=== PATIENT | male | born 1955 | race Caucasian/White ===

== ENCOUNTER → 2019-07-28 | Outpatient (CLI) | payer MEDICARE ==
[2019-07-28 10:07] LABS: Appearance,Urine Clear (Clear); Bilirubin,Urine Negative (Negative); Blood,Urine Negative (Negative); Color,Urine Yellow; Glucose,Urine (UA) Negative (Negative); Ketones,Urine Negative (Negative); Leukocyte Esterase,Urine Negative (Negative); Nitrite,Urine Negative (Negative); Protein,Urine Negative (Negative); Specific Gravity,Urine 1.008 (1.001-1.035); Urobilinogen,Urine <2.0 mg/dL (<2.0)
[2019-07-28 10:17] LABS: INR 0.9 (<1.2); Partial Thromboplastin Time 23.5 sec (22.0-30.0); Prothrombin Time 9.8 sec (9.0-12.0)
[2019-07-28 10:35] LABS: ALT 20 U/L (4-49); AST 22 U/L (17-59); African American GFR (CKD) >90 (>60 ml/min/1.73 sqM); Albumin 4.2 g/dL (3.5-5.0); Alkaline Phosphatase 78 U/L (38-126); Anion Gap 9 mmol/L; Blood Urea Nitrogen 17 mg/dL (9-20); Calcium 9.9 mg/dL (8.4-10.2); Carbon Dioxide 24 mmol/L (22-30); Chloride 105 mmol/L (98-107); Glucose 206 mg/dL (74-99); Non-African American GFR(CKD) >90 (>60 ml/min/1.73 sqM); Potassium 4.7 mmol/L (3.5-5.1); Sodium 138 mmol/L (137-145); Total Bilirubin 0.6 mg/dL (0.2-1.3); Total Protein 7.4 g/dL (6.3-8.2)
== END | disposition home or self-care (01) ==
LOC: LABPAT 08:49
PROVIDERS: ATTEND Orthopaedic Surgery
DX: Z01.818 Encounter for other preprocedural examination (principal); Z01.812 Encounter for preprocedural laboratory examination; Z51.81 Encounter for therapeutic drug level monitoring; Z79.01 Long term (current) use of anticoagulants
CPT/HCPCS: 80053; 81003; 85610; 85730; 86850; 86900; 86901; 87070; 93005

== ENCOUNTER → 2019-07-28 | Outpatient (CLI) | payer MEDICARE ==
[2019-07-28 10:04] LABS: Basophils % (A) 1 %; Eosinophils # (A) 0.1 k/uL (0-0.7); Eosinophils % (A) 2 %; HCT 44.3 % (39.0-53.0); HGB 14.4 gm/dL (13.0-17.5); Lymphocytes # (A) 2.2 k/uL (1.0-4.8); Lymphocytes % (A) 34 %; MCH 30.4 pg (25.0-35.0); MCHC 32.5 g/dL (31.0-37.0); MCV 93.4 fL (80.0-100.0); Mean Platelet Volume 7.5; Monocytes # (A) 0.4 k/uL (0-1.0); Monocytes % (A) 7 %; Neutrophils # (A) 3.5 k/uL (1.3-7.7); Neutrophils % (A) 55 %; Platelet Count 261 k/uL (150-450); RBC 4.74 m/uL (4.30-5.90); WBC 6.5 k/uL (3.8-10.6)
== END | disposition home or self-care (01) ==
LOC: LABWHC1 08:56
PROVIDERS: ATTEND Physician Assistant
DX: E11.59 Type 2 diabetes mellitus with other circulatory complications (principal); I10 Essential (primary) hypertension
CPT/HCPCS: 36415; 85025

== ENCOUNTER 2019-08-03 08:44 | Day surgery (SDC) | payer MEDICARE ==
[2019-07-29 17:42] VITALS: BMI 29.4
[~2019-08-03 08:44] MED LIST: ACETAMINOPHEN TAB 500 MG TAB PO ONE; DEXAMETHASONE SOD PHOSPHATE 10 MG/ML 1 ML VIAL IV ONE; HYDROmorphone 0.5 MG/0.5 ML SYRINGE IVP PRN; LIDOCAINE 1% 20 ML VIAL (10MG/ML) FOR IV START INTRADERMA PRN; MELOXICAM 7.5 MG TAB PO ONE; ONDANSETRON 4 MG/2 ML VIAL IVP ONE; TRANEXAMIC ACID 1,000 MG in SODIUM CHLORIDE 0.9% 100 ML IVPB ONE; fentaNYL (PF) 50 MCG/ML 2 ML AMP IV PRN
[2019-08-03 09:24] LABS: Glucose,Whole Blood 150 mg/dL (75-99)
[2019-08-03] MEDS: LACTATED RINGERS 1,000 ML IV SCH ×3 (09:24→20:47)
[2019-08-03] MEDS ORDERED: PROPOFOL 10 MG/ML 20 ML VIAL IV ONE (09:58)
[2019-08-03] MEDS ORDERED: KETAMINE 10 MG/ML 20 ML VIAL ONE (09:58)
[2019-08-03] MEDS ORDERED: ePHEDrine SULFATE/0.9% NACL/PF 50 MG/5 ML SYRINGE IV ONE (09:58)
[2019-08-03] MEDS ORDERED: MIDAZOLAM 2 MG/2 ML VIAL ONE (09:58)
[2019-08-03] MEDS ORDERED: fentaNYL (PF) 50 MCG/ML 2 ML AMP ONE (09:58)
[2019-08-03] MEDS ORDERED: TRANEXAMIC ACID 1,000 MG/10 ML VIAL ONE (09:58)
[2019-08-03] MEDS ORDERED: SODIUM CHLORIDE 0.9% 100 ML BAG ONE (09:58)
[2019-08-03] MEDS ORDERED: ceFAZolin 3,000 MG in SODIUM CHLORIDE 0.9% IRRIGATIO 3,000 ML IRRIGATION ONE (10:02)
[2019-08-03] MEDS ORDERED: ROPIVACAINE 246.25 MG, EPINEPHrine 0.5 MG, KETOROLAC 30 MG, cloNIDine HCL/PF 80 MCG, WA... MISCELLANE ONE ×5 (10:04)
[2019-08-03] MEDS ORDERED: NALOXONE 0.4 MG/ML 1 ML VIAL IV PRN (10:43)
[2019-08-03] MEDS ORDERED: HYDROcodone/APAP 7.5-325MG 1 EACH TAB PO PRN (10:43)
[2019-08-03] MEDS ORDERED: TEMAZEPAM 15 MG CAP PO PRN (10:43)
[2019-08-03] MEDS ORDERED: HYDROmorphone 0.5 MG/0.5 ML SYRINGE IVP PRN ×2 (10:43)
[2019-08-03] MEDS ORDERED: MAGNESIUM HYDROXIDE 2,400 MG/10 ML CUP PO PRN (10:43)
[2019-08-03] MEDS ORDERED: LACTATED RINGERS 1,000 ML IV ONE (10:45)
--- NOTE | 2019-08-03 11:34 | P.OP ---
Date of Procedure: 08/03/19 Procedure(s) Performed: PREOPERATIVE DIAGNOSIS: Right hip severe osteoarthritis POSTOPERATIVE DIAGNOSIS: Right hip severe osteoarthritis OPERATION: Right hip total replacement arthroplasty (uncemented implantation with ceramic on polyethylene articulation). ANESTHESIA: Spinal ESTIMATED BLOOD LOSS: 150 ml. CASTING SORTER: Mariangel Ken PA-C (assistance with: patient positioning, retraction, exposure, hemostasis, leg positioning, implantation, irrigation, closure, dressing) COMPLICATIONS: None apparent. COMPONENTS IMPLANTED: Mary Jo continuum acetabular cup with cluster holes; continuum longevity 15 elevated liner, 32 mm id; Mary Jo VerSys Fiber Metal stem; VerSys 32 mm femoral head with +0 mm neck length extension INDICATIONS: Mr. Colvin is a 63 year old male with significant end-stage osteoarthritis involving the right hip and commensurate severe symptoms. He presents to the operating room today for total hip replacement. I have discussed the steps of the operation as well as potential risks and complications as being inclusive of, but not limited to: Leading, infection, scarring, discomfort, or vessel and/or nerve damage, need for further surgery, loosening, dislocation, wear, osteolysis, limb length inequality, fracture, blood clot, pulmonary embolism, , persistent limp, and other risks. The patient is aware these risks and wishes to proceed with surgery and has signed a consent form. PROCEDURE: After appropriate consent was obtained, the patient was taken to the operating room and placed in supine position. Spinal anesthetic was administered and after confirmation of adequate anesthesia, the patient was placed into the lateral decubitus position with the right side up. Care was taken to make sure that all pressure points were adequately padded and he was stabilized to the table with a [place] hip positioner. The right hip was prepped and draped in the usual aseptic fashion using a combination of ChloraPrep and alcohol. Ioban drape was used for the case and the patient received intravenous antibiotics prior to the incision. "Time out" was called, confirming patient identity, side, procedure, availability of implants and administration of antibiotics. The incision was created directly over the greater trochanter and carried slightly posteriorly for a posterior approach to the hip. The incision was then deepened down to subcutaneous tissue and fascia patti. Fascia patti was split in line with the incision and split proximally along the fibers of the gluteus angelika. The underlying fibers of the muscle were teased apart using finger dissection and bleeding vessels were picked up and coagulated. Retractor was then placed posteriorly consisting of a blunt Mina. The short external rotators and capsule were exposed using good visualization of the attachment of the external rotators to the femur was established. The short external rotators and capsule were released using electrocautery from their femoral attachments. A hockey stick shaped incision was created in the capsule. Joint fluid was evacuated and the patient's hip was able to be dislocated fairly easily. The patient's femoral head was severely arthritic with eburnated bone present and a 360 degrees lyons of osteophytes. The femoral neck cut was created approximately 1 cm superior to the lesser trochanter using a reciprocating saw. The femoral head and neck fragment was removed and attention was then directed to the acetabulum. An anterior acetabular retractor was applied followed by posterior retraction of the capsule with a Meyerding retractor. This afforded good visualization into the acetabular cavity. Soft tissue was removed and residual cartilage within the acetabular vault was removed using a curette. Labrum was removed using a long-handled knife. Attention was then directed to reaming. The size 44 reamer was used first, followed by increasing increments until the final size reamer was used. Please see the implantation sheet for exact sizes used for the components. Once the final reamer had been utilized to expand the socket it was noted that there was a good supportive bone around the acetabular socket and no further reaming needed to be performed. The trial the same size as the last reamer used was then impacted into the acetabular vault and found to have good fit. The acetabular component, one size (2mm) greater than the trial was then called for. The cluster holes were placed posteriorly and the component was impacted in a position of approximately 40 degrees abduction and 20 degrees anteversion. This matched this patient's picayune anteversion and it was noted that the cup had excellent stability without need for additional screw fixation. Attention was then directed to the acetabular liner. The anteversion and abduction angle of the component was noted to be very good. A 15 elevated liner was used and locked into position with the elevation posterior superior. Osteophytes around the posterior and inferior aspect of the acetabulum were trimmed as necessary to prevent any impingement. Attention was then directed back to the proximal femur. Retractors were placed around the proximal femur and box osteotome was used followed by canal finder and trochanteric reamer. Cylindrical reaming was performed. Progressive broaching was then performed starting with a #10 broach and progressing final size, in a position of 15 degrees anteversion. [place] anteversion was within 5 degrees of stem position. The final size broach had excellent fit and fill of the patient's metaphysis and diaphysis. Trial reduction was then performed starting with size 32 mm femoral head and various neck combination of stability, limb length equality, and soft tissue tension. Trial components were then removed. The canal was lavaged and the final size femoral stem component was impacted into position. The implant fit very well and had excellent stability. The femoral head was then impacted onto the [place] taper. Blood and debris were removed from the acetabular component and the hip was then reduced and checked for stability, limb length and soft tissue tension. These parameters found to be satisfactory, the wound was then thoroughly irrigated with normal saline. Final hemostasis was obtained using electrocautery and IV tranexamic acid, 1 g given at the time of prepping and draping, and another 1 g given at the time of closure. Local anesthetic solution consisting of ropivacaine with epinephrine, clonidine, and ketorolac was also used throughout the case targeting the capsule, fascia, and skin. Closure of the capsule was performed meticulously using #3 Vicryl suture. Four [id number] sutures were placed in the posterior capsule along with repair of the external rotators. The fascia patti was then repaired using combination of #3 Vicryl suture in interrupted fashion and Quill and running fashion. 2-0 Vicryl suture was used for the subcutaneous tissues and 3-0 Quill for the skin. Dermabond or Steri-Strips were then applied. The patient tolerated the procedure well. There were no complications and the wound bed was dry and there was no need for drain placement. Sterile dressing was then applied and the patient was carefully removed from the operating room table, placed on the stretcher and was taken to the recovery room in stable condition. Sponge and needle counts were correct.
[2019-08-03 12:36] LABS: Glucose,Whole Blood 173 mg/dL (75-99)
--- NOTE | 2019-08-03 12:51 | XR ---
EXAMINATION TYPE: XR Hip Limited RT DATE OF EXAM: 08/03/2019 CLINICAL HISTORY: Right hip pain and osteoarthritis. TECHNIQUE: Single AP portable view of right hip is obtained immediately postoperatively. COMPARISON: None. FINDINGS: Metallic hardware from right hip arthroplasty is seen and appears satisfactory in alignment and position. There is evidence of recent surgery with subcutaneous gas noted superior lateral aspe ct. Right groin vascular calcifications seen. Surgical clips right scrotal region partially imaged. IMPRESSION: Metallic hardware from right hip arthroplasty is satisfactory in position.
--- NOTE | 2019-08-03 14:42 | P.CONS ---
History of Present Illness - Reason for Consult Management of diabetes mellitus - History of Present Illness Patient is pleasant 58-year-old male was in his admitted for elective right hip arthrodesis excessively underwent surgery patient doesn't have any drainage patient any fever chills nausea vomiting abdominal pain. Patient will have hypoglycemic agents and lisinopril at home. She did not pass gas did not move his bowels yet minimal pain post surgery Review of Systems REVIEW OF SYSTEMS: CONSTITUTIONAL: No fever, no malaise, no fatigue. HEENT: No recent visual problems or hearing problems. Denied any sore throat. CARDIOVASCULAR: No chest pain, orthopnea, PND, no palpitations, no syncope. PULMONARY: No shortness of breath, no cough, no hemoptysis. GASTROINTESTINAL: No diarrhea, no nausea, no vomiting, no abdominal pain. NEUROLOGICAL: No headaches, no weakness, no numbness. HEMATOLOGICAL: Denies any bleeding or petechiae. GENITOURINARY: Denies any burning micturition, frequency, or urgency. MUSCULOSKELETAL/RHEUMATOLOGICAL: Denies any joint pain, swelling, or any muscle pain. ENDOCRINE: Denies any polyuria or polydipsia. The rest of the 14-point review of systems is negative. Past Medical History Past Medical History: Diabetes Mellitus, Hypertension, Osteoarthritis (OA) Additional Past Medical History / Comment(s): lost 100 lbs. w/lap band-still has fluid in History of Any Multi-Drug Resistant Organisms: None Reported Past Surgical History: Bariatric Surgery, Heart Catheterization With Stent, Joint Replacement, Orthopedic Surgery Additional Past Surgical History / Comment(s): lap band, left hip replaced, repair left heel fx. w/plate, CTS deondre. Past Anesthesia/Blood Transfusion Reactions: Previous Problems w/ Anesthesia, Postoperative Nausea & Vomiting (PONV) Additional Past Anesthesia/Blood Transfusion Reaction / Comm: difficulty coming out of anesthesia w/last hip replacement Date of Last Stent Placement:: 2011 Smoking Status: Former smoker - Past Family History Mother Family Medical History: No Reported History Medications and Allergies Home Medications Medication Instructions Recorded Confirmed Type Lisinopril [Zestril] 20 mg PO DAILY 07/29/19 08/03/19 History sitaGLIPtin PHOS/metFORMIN HCL 1 each PO DAILY 07/29/19 08/03/19 History [Janumet Xr 100-1,000 mg Tablet] Aspirin 325 mg PO BID #1 tab 08/03/19 Rx HYDROcodone/APAP 7.5-325MG [[place] 1 - 2 tab PO Q4-6H PRN #50 tab 08/03/19 Rx 7.5-325] Sennosides-Docusate Sodium 1 tab PO BID #60 tablet 08/03/19 Rx [Senokot-S] Allergies Allergy/AdvReac Type Severity Reaction Status Date / Time No Known Allergies Allergy Verified 08/03/19 09:02 Physical Exam Vitals: Vital Signs Temp Pulse Pulse Resp BP BP Pulse Ox 08/03/19 14:00 56 L 16 97/60 92 L 08/03/19 13:45 74 18 93/53 95 08/03/19 13:15 56 L 16 103/57 91 L 08/03/19 13:00 63 16 107/58 92 L 08/03/19 12:45 55 L 16 107/63 92 L 08/03/19 12:31 56 L 16 107/63 91 L 08/03/19 12:15 60 16 105/59 91 L 08/03/19 12:01 97.1 F L 68 14 116/65 93 L 08/03/19 09:08 97.2 F L 68 15 110/59 97 Intake and Output 08/02/19 08/03/19 08/03/19 22:59 06:59 14:59 Intake Total 1401 Output Total 150 Balance 1251 Intake: IV 1401 Output: Estimated Blood Loss 150 Other: Weight 92.2 kg PHYSICAL EXAMINATION: GENERAL: The patient is alert and oriented x3, not in any acute distress. Well developed, well nourished. HEENT: Pupils are round and equally reacting to light. EOMI. No scleral icterus. No conjunctival pallor. Normocephalic, atraumatic. No pharyngeal erythema. No thyromegaly. CARDIOVASCULAR: S1 and S2 present. No murmurs, rubs, or gallops. PULMONARY: Chest is clear to auscultation, no wheezing or crackles. ABDOMEN: Soft, nontender, nondistended, normoactive bowel sounds. No palpable organomegaly. MUSCULOSKELETAL: Deferred to orthopedic surgery EXTREMITIES: No cyanosis, clubbing, or pedal edema. NEUROLOGICAL: Gross neurological examination did not reveal any focal deficits. SKIN: No rashes. Results Labs: Abnormal Lab Results - Last 24 Hours (Table) 08/03/19 08/03/19 Range/Units 09:23 12:35 POC Glucose (mg/dL) 150 H 173 H (75-99) mg/dL Assessment and Plan Plan: -Hypertension: Patient is expected to have hypotension in the perioperative better to hold off lisinopril temporarily. -Type 2 diabetes mellitus: Patient will be continued on sliding scale insulin and diabetic diet hold off on oral hypoglycemic agents. -Right hip arthroplasty pain management and DVT prophylaxis as per primary service
[2019-08-03 16:43] LABS: Glucose,Whole Blood 299 mg/dL (75-99)
[2019-08-03] MEDS: HYDROcodone/APAP 7.5-325MG 1 EACH TAB PO PRN (17:32)
[2019-08-03] MEDS: INSULIN ASPART (NovoLOG) 100 UNIT/ML VIAL SQ SCH ×2 (17:43→20:48)
[2019-08-03 20:33] LABS: Glucose,Whole Blood 299 mg/dL (75-99)
[2019-08-03] MEDS: ASPIRIN 325 MG TAB PO SCH (20:47)
[2019-08-03] MEDS ORDERED: SENNOSIDES-DOCUSATE SODIUM 1 EACH TAB PO SCH (21:00)
[2019-08-04] MEDS: HYDROmorphone 0.5 MG/0.5 ML SYRINGE IVP PRN ×2 (01:41→11:26)
[2019-08-04] MEDS: LACTATED RINGERS 1,000 ML IV SCH (05:51)
[2019-08-04 07:15] LABS: Glucose,Whole Blood 118 mg/dL (75-99)
[2019-08-04 07:37] LABS: Basophils % (A) 0 %; Eosinophils % (A) 0 %; HCT 38.2 % (39.0-53.0); HGB 12.4 gm/dL (13.0-17.5); Lymphocytes # (A) 2.2 k/uL (1.0-4.8); Lymphocytes % (A) 19 %; MCH 30.1 pg (25.0-35.0); MCHC 32.5 g/dL (31.0-37.0); MCV 92.7 fL (80.0-100.0); Mean Platelet Volume 8.1; Monocytes # (A) 0.8 k/uL (0-1.0); Monocytes % (A) 7 %; Neutrophils # (A) 8.6 k/uL (1.3-7.7); Neutrophils % (A) 73 %; Platelet Count 221 k/uL (150-450); RBC 4.12 m/uL (4.30-5.90); RDW 12.7 % (11.5-15.5); WBC 11.8 k/uL (3.8-10.6)
[2019-08-04 08:20] VITALS: BP 106/66; PULSE 69; RESP 18; TEMP 98
[2019-08-04] MEDS: HYDROcodone/APAP 7.5-325MG 1 EACH TAB PO PRN (08:52)
[2019-08-04] MEDS: ASPIRIN 325 MG TAB PO SCH (08:52)
[2019-08-04] MEDS: INSULIN ASPART (NovoLOG) 100 UNIT/ML VIAL SQ SCH (08:54)
[2019-08-04] MEDS ORDERED: MELOXICAM 7.5 MG TAB PO SCH (09:00)
[2019-08-04 11:56] LABS: Glucose,Whole Blood 179 mg/dL (75-99)
--- NOTE | 2019-08-04 13:56 | P.CONS ---
History of Present Illness - Reason for Consult Consult date: 08/04/19 right hip OA Requesting physician: Sylvain Luu - Chief Complaint right hip replacement - POD1 - History of Present Illness The patient is a 63-year-old male with a history of significant osteoarthritis. The patient has previously had a left total hip replacement followed by adjuvant radiotherapy for heterotopic ossification approximately 5 years ago. The patient reports that he was developing increased difficulty with pain and ambulation owing to right hip osteoarthritis. He subsequently agreed to and underwent a right total hip replacement on August 03. He is postop day 1, and notes that his pain is well controlled at this time. He reports only 4 out of 10 pain. The patient has done very well with his operative course, and is hopeful to go home today. Review of Systems Constitutional: Denies chills, Denies fever Eyes: denies blurred vision Ears: deny: decreased hearing Ears, nose, mouth and throat: Denies headache Cardiovascular: Denies chest pain Respiratory: Denies cough Musculoskeletal: right: hand pain (post-op) Neurological: Denies aphasia, Denies ataxia Past Medical History Past Medical History: Diabetes Mellitus, Hypertension, Osteoarthritis (OA) Additional Past Medical History / Comment(s): lost 100 lbs. w/lap band-still has fluid in History of Any Multi-Drug Resistant Organisms: None Reported Past Surgical History: Bariatric Surgery, Heart Catheterization With Stent, Joint Replacement, Orthopedic Surgery Additional Past Surgical History / Comment(s): lap band, left hip replaced, repair left heel fx. w/plate, CTS deondre. Past Anesthesia/Blood Transfusion Reactions: Previous Problems w/ Anesthesia, Postoperative Nausea & Vomiting (PONV) Additional Past Anesthesia/Blood Transfusion Reaction / Comm: difficulty coming out of anesthesia w/last hip replacement Date of Last Stent Placement:: 2011 Smoking Status: Former smoker - Past Family History Mother Family Medical History: No Reported History Medications and Allergies Home Medications Medication Instructions Recorded Confirmed Type Lisinopril [Zestril] 20 mg PO DAILY 07/29/19 08/03/19 History sitaGLIPtin PHOS/metFORMIN HCL 1 each PO DAILY 07/29/19 08/03/19 History [Janumet Xr 100-1,000 mg Tablet] Aspirin 325 mg PO BID #1 tab 08/03/19 Rx HYDROcodone/APAP 7.5-325MG [[place] 1 - 2 tab PO Q4-6H PRN #50 tab 08/03/19 Rx 7.5-325] Sennosides-Docusate Sodium 1 tab PO BID #60 tablet 08/03/19 Rx [Senokot-S] Allergies Allergy/AdvReac Type Severity Reaction Status Date / Time No Known Allergies Allergy Verified 08/03/19 09:02 Physical Exam Vitals: Vital Signs Temp Pulse Resp BP Pulse Ox 08/04/19 08:11 98.0 F 69 18 106/66 99 08/04/19 08:00 69 18 08/04/19 04:15 17 08/04/19 00:49 98.2 F 78 17 108/66 95 08/04/19 00:43 17 08/03/19 20:33 17 08/03/19 19:06 98.5 F 107 H 18 109/66 95 08/03/19 14:30 97.8 F 67 16 104/47 95 08/03/19 14:00 56 L 16 97/60 92 L Intake and Output 08/03/19 08/04/19 08/04/19 22:59 06:59 14:59 Intake Total 296 Output Total 800 Balance 296 -800 Intake: Oral 296 Output: Urine 800 Other: Voiding Method Toilet Toilet Toilet # Voids 1 1 - Constitutional General appearance: average body habitus, no acute distress - EENT Eyes: EOMI, PERRLA ENT: hearing grossly normal - Neck Neck: no rigidity - Respiratory Respiratory: bilateral: CTA - Cardiovascular Rhythm: regular - Gastrointestinal General gastrointestinal: no distended, soft - Integumentary Integumentary: no cellulitis, no cyanotic - Neurologic Neurologic: CNII-XII intact - Psychiatric Psychiatric: A&O x's 3, appropriate affect Results CBC & Chem 7: 08/04/19 06:39 Labs: Abnormal Lab Results - Last 24 Hours (Table) 08/03/19 08/03/19 08/04/19 Range/Units 16:42 20:21 06:39 WBC 11.8 H (3.8-10.6) k/uL RBC 4.12 L (4.30-5.90) m/uL Hgb 12.4 L (13.0-17.5) gm/dL Hct 38.2 L (39.0-53.0) % Neutrophils # 8.6 H (1.3-7.7) k/uL POC Glucose (mg/dL) 299 H 299 H (75-99) mg/dL 08/04/19 08/04/19 Range/Units 07:03 11:45 WBC (3.8-10.6) k/uL RBC (4.30-5.90) m/uL Hgb (13.0-17.5) gm/dL Hct (39.0-53.0) % Neutrophils # (1.3-7.7) k/uL POC Glucose (mg/dL) 118 H 179 H (75-99) mg/dL Assessment and Plan Plan: The patient is a 63-year-old male with a history of advanced osteoarthritis previously requiring a left total hip replacement. He now presents for right total hip replacement, postop day 1. We have been requested to discuss heterotopic ossification prophylaxis with the patient. 1. I discussed with the patient that he is at risk based on his medical history of an increased rate of developing heterotopic ossification surrounding his new hip replacement. I explained that this is associated with increased pain, decreased range of motion and decreased longevity of the replacement joint. I d iscussed that a single fraction of radiotherapy has been shown to decrease the rate of this abnormal bony growth provided his given within 3 days of the surgery. I discussed with the patient I did not expect significant side effects of this treatment; however mild fatigue, mild skin irritation and reversible azoospermia all possible. 2. Unfortunately, we were initially having some difficulty importing the patient's information into our radiation EMR. Tech support was able to help this has been subsequently fixed, however the patient was only able to come for CT simulation today. He will return tomorrow for his single fraction of radiotherapy which will be delivered within the therapeutic window of 72 hours. Unfortunately he would've had to wait to the end of the day today for treatment delivery, and the patient would rather return home and come back tomorrow. Time with Patient: Greater than 30
== END 2019-08-04 13:56 ==
LOC: OR 08:44 → 4SSUR 12:36 → EDSTATUS 15:10 → OR 08-04 13:56
PROVIDERS: ATTEND Orthopaedic Surgery
DX: M16.11 Unilateral primary osteoarthritis, right hip (principal); I25.10 Atherosclerotic heart disease of native coronary artery without angina pectoris; I10 Essential (primary) hypertension; E11.9 Type 2 diabetes mellitus without complications; Z96.642 Presence of left artificial hip joint; Z95.5 Presence of coronary angioplasty implant and graft; Z98.84 Bariatric surgery status; Z79.899 Other long term (current) drug therapy; Z79.84 Long term (current) use of oral hypoglycemic drugs; Z83.3 Family history of diabetes mellitus; Z82.49 Family history of ischemic heart disease and other diseases of the circulatory system; Z87.891 Personal history of nicotine dependence; Z87.11 Personal history of peptic ulcer disease; Z97.3 Presence of spectacles and contact lenses; Z98.890 Other specified postprocedural states
CPT/HCPCS: 27130; 97161; 97166; 85025; 88300; 73501; C1776; J2250; J0171; J1100; J0690 ×3; J2405; J3010; J1885; J2795; J2704; J0735; J1170; 86850; 86900; 86901